=== PATIENT | male | born 1940 | race Caucasian/White ===

== ENCOUNTER 2023-12-08 19:06 | Emergency (ER) | payer MEDICARE ==
[~2023-12-08] VITALS: Ht 182.8 cm; Wt 85.3 kg
[2023-12-08 19:26] LABS: BASO % 0.6 % (0.0-1.0); EOS # 0.1 10*3/uL (0.0-0.4); EOS % 1.3 % (1.0-4.0); HEMATOCRIT 39.4 % (42.0-52.0); LYMPH # 1.2 10*3/uL (1.3-4.4); LYMPH % 22.7 % (27.0-41.0); MEAN CELL VOLUME 104.8 fl (80.0-94.0); MEAN CORPUSCULAR HGB 33.5 pg (27.0-31.0); MEAN PLATELET VOLUME 10.8 fl (9.6-12.3); MONO # 0.3 10*3/uL (0.1-1.0); MONO % 6.3 % (3.0-9.0); NEUT # 3.7 10*3/uL (2.3-7.9); NEUT % 68.7 % (47.0-73.0); PLATELET COUNT AUTOMATED 137 10*3/uL (130-400); RED BLOOD COUNT 3.76 10*6/uL (4.50-5.90); RED CELL DISTRI WIDTH 12.9 % (0-14.5); WHITE BLOOD COUNT 5.4 10*3/uL (4.8-10.8)
[2023-12-08 19:48] LABS: ALKALINE PHOSPHATASE 71 U/L (46-116); BUN 19 mg/dl (9-23); CHLORIDE 107 mmol/L (98-107); ETHYL ALCOHOL 4.3 mg/dl (<3); POTASSIUM 3.9 mmol/L (3.4-5.1); SGPT/ALT 19 U/L (5-49)
[2023-12-08 19:51] LABS: BILIRUBIN Negative (Negative); BLOOD Negative (Negative); CLARITY Clear (Clear); COLOR Yellow (Yellow); GLUCOSE Negative (Negative); KETONE Negative (Negative); LEUKO ESTERASE Negative (Negative); NITRITE Negative (Negative); SPECIFIC GRAVITY >= 1.030 (1.001-1.030); UROBILINOGEN 0.2 E.U./dl (0.0-1.0)
[2023-12-08 19:58] LABS: URINE AMPHETAMINES Negative (1000ng/ml); URINE BARBITURATES Negative (200ng/ml); URINE BENZODIAZEPINES Negative (200ng/ml); URINE CANNABINOIDS (THC) Negative (50ng/ml); URINE COCAINE Negative (300ng/ml); URINE METHADONE Negative (300ng/ml); URINE OPIATES Negative (300ng/ml); URINE PHENCYCLIDINE Negative (25ng/ml)
[2023-12-08 20:08] LABS: BACTERIA 1+; CALCIUM OXALATE CRYSTALS 1+
[2023-12-08] MEDS ORDERED: LORazepam 2 MG/ML VIAL IM ONE (21:40)
[2023-12-09] MEDS ORDERED: TYLENOL325 M1 PO ×2 (10:03)
[2023-12-09] MEDS ORDERED: ATIVAN1 MG PO (10:04)
[2023-12-09] MEDS ORDERED: LIPITOR20 MG PO (10:06)
[2023-12-09] MEDS ORDERED: BISACODYL10 MG R (10:07)
[2023-12-09] MEDS ORDERED: DEPAKOTE SPRIN125 MG PO ×2 (10:08→10:09)
[2023-12-09] MEDS ORDERED: FLEET ENEMA 13133 ML R (10:10)
[2023-12-09] MEDS ORDERED: Lovenox40 MG/0.4 PO (10:10)
[2023-12-09] MEDS ORDERED: LEVOTHYROXINE125 MCG PO (10:12)
[2023-12-09] MEDS ORDERED: MELATONIN3 MG PO (10:13)
[2023-12-09] MEDS ORDERED: MILK OF MA400 MG/53 PO (10:17)
[2023-12-09] MEDS ORDERED: PROTONIX40 MG PO (10:18)
[2023-12-09] MEDS ORDERED: MIRALAX POWDER17 G1 PO (10:18)
[2023-12-09] MEDS ORDERED: RISPERDAL0.5 MG PO (10:19)
[2023-12-09] MEDS ORDERED: TAMSULOSIN HCL0.4 MG PO (10:20)
[2023-12-09] MEDS ORDERED: SENOKOT8.6 MG PO (10:20)
[2023-12-09] MEDS ORDERED: TRAZODONE100 MG PO (10:21)
[2023-12-09] MEDS ORDERED: THIAMINE HCL100 MG PO (10:21)
== END 2023-12-08 23:16 ==
LOC: ED 19:06
PROVIDERS: Internal Medicine
DX: F03.90 Unspecified dementia, unspecified severity, without behavioral disturbance, psychotic disturbance, mood disturbance, and anxiety (principal); F91.9 Conduct disorder, unspecified; D53.9 Nutritional anemia, unspecified; I48.91 Unspecified atrial fibrillation; E03.9 Hypothyroidism, unspecified; Z79.899 Other long term (current) drug therapy